=== PATIENT | female | born 1985 | race Caucasian/White ===

== ENCOUNTER 2017-02-05 19:57 | Emergency (ER) | payer BC, MEDICAID, OTHER ==
[2017-02-05 20:20] VITALS: BP 137/89
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
== END 2017-02-05 21:14 | disposition home or self-care (01) ==
LOC: DL.ED 19:57
DX: N89.8 Other specified noninflammatory disorders of vagina (principal)
CPT/HCPCS: 81001; 81025; 99283